=== PATIENT | female | born 1980 | race Caucasian/White ===

== ENCOUNTER 2020-03-09 14:58 | Emergency (ER) | payer BC, SELFPAY ==
[2020-03-09 15:04] VITALS: BP 142/71; PULSE 100; RESP 16; TEMP 37; O2SAT 98; BMI 36.3
[2020-03-09 15:16] VITALS: BP 142/71; PULSE 100; RESP 16; TEMP 37; O2SAT 98; BMI 36.1
--- NOTE | 2020-03-09 15:36 | HMH.EDUTC ---
[facility] [place] Disposition Clinical Impression: Left leg pain Gastrocnemius muscle strain Qualifiers: Encounter type: initial encounter Laterality: left Qualified Code(s): S86.112A - Strain of other muscle(s) and tendon(s) of posterior muscle group at lower leg level, left leg, initial encounter Disposition: Home, Self-Care Condition on Discharge: Good Instructions: How to Use Crutches, DI for Calf Muscle Strain Additional Instructions: Rest the extremity, apply ice for 15 minutes as tolerated three or four times per day, Wear the ra wrap for compression, Elevate the extremity as tolerated while you are resting. Use the crutches for ambulation to rest the leg . Take ibuprofen for pain. I sent in a prescription to your pharmacy. Follow up with Dr. Aragon (orthopedics). I put in a referral but you need to call her office and schedule an appointment. Follow up with your regular doctor. GO TO THE ER FOR ANY WORSENING SYMPTOMS Prescriptions: Ibuprofen [Ibuprofen 600mg Tablet] 600 mg PO Q6HP PRN #30 tab PRN Reason: Mild Pain Transmission Status: Received by [facility] Referrals: Tucker Lopez [Primary Care Provider] - Forms: Work/School Release Time of Disposition: 16:08 Medical Decision Making - Medical Records Medical records reviewed: No: I reviewed the patient's medical records. - Fernandez Inquiry Pt receiving controlled substance: No Vital Signs: 03/09/20 15:04 03/09/20 15:16 03/09/20 16:56 Temperature 98.6 F 98.6 F 98.6 F Temperature Source Oral Oral Pulse Rate 100 H Pulse Rate [Right Brachial] 100 H 100 H Respiratory Rate 16 16 16 Blood Pressure 142/71 H Blood Pressure [Right Arm] 142/71 H 142/71 H Blood Pressure Mean [Right Arm] 94 94 Blood Pressure Source [Right Arm] Automatic Cuff Blood Pressure Position [Right Arm] Sitting 02 Sat by Pulse Oximetry 98 98 Oxygen Delivery Method Room Air Room Air - Radiology Data #1 Image(s): Tib/Fib Image Reviewed: Yes I reviewed the patient's radiology image Preliminary Findings: Normal/NAD, No Fracture Seen PROCEDURE: XR TIBIA FIBULA LT 2V CLINICAL INDICATION: pain of left lower leg after feeling pop COMPARISON: No exams were available for comparison FINDINGS: No fracture or dislocation. No lytic or blastic change. There is normal mineralization. The joint spaces are well-preserved. No significant degenerative/arthritic changes. No erosive changes evident. Other findings:None. IMPRESSION: No acute findings. Dictated by: Pavan Laws MD 03/09/2020 17:19 Pavan Laws MD in [place] 03/09/2020 17:19 [facility] [place] HPI - General Stated complaint: [id number] calf of left leg pain Time Seen by Provider: 03/09/20 15:36 Mode of Arrival: Ambulatory Source of Information: Patient Limitations: No Limitations Description of Symptoms (Recalled from Triage Doc. by RN): pt c/o left posterior calf pain. pt states she felt it pop when she squat down while working HEENT Symptoms (Recalled from RN notes): No Resp Symptoms (Recalled from RN notes): No Skin Symptoms (Recalled from RN notes): No MS Symptoms (Recalled from RN notes): Yes Functional Status (Recalled from RN notes): WNL - History of Present Illness Provider Complaint: She states that while she was at work she was pushing up on a door and she felt a pop in the back of her right lower leg. Since then she has had pain and soreness of the back of her left lower leg. It hurts very bad to try to walk on it. - Related Data Home Medications Medication Instructions Recorded Confirmed Levocetirizine Dihydrochloride 5 mg PO DAILY 03/09/20 03/09/20 [Xyzal] Sertraline HCl [Zoloft 100mg 100 mg PO DAILY 03/09/20 03/09/20 tablet] Varenicline Tartrate [Chantix 1mg 1 mg PO DAILY 03/09/20 03/09/20 tablet] Previous Rx's Medication Instructions Recorded Ibuprofen [Ibuprofen 600mg 600 mg PO Q6HP PRN #30 tab 03/09/20 Tablet] Al
--- NOTE | 2020-03-09 15:42 | XR_ITS ---
PROCEDURE: XR TIBIA FIBULA LT 2V CLINICAL INDICATION: pain of left lower leg after feeling pop COMPARISON: No exams were available for comparison FINDINGS: No fracture or dislocation. No lytic or blastic change. There is normal mineralization. The joint spaces are well-preserved. No significant degenerative/arthritic changes. No erosive changes evident. Other findings:None. IMPRESSION: No acute findings. Dictated by: Pavan Laws MD 03/09/2020 17:19 Pavan Laws MD in [place] 03/09/2020 17:19
[2020-03-09 16:56] VITALS: BP 142/71; PULSE 100; RESP 16; TEMP 37; O2SAT 98
== END 2020-03-09 17:11 | disposition home or self-care (01) ==
PROVIDERS: Emergency Provider Nurse Practitioner Family; PCP Family Medicine
DX: S86.112A Strain of other muscle(s) and tendon(s) of posterior muscle group at lower leg level, left leg, initial encounter (principal); X50.0XXA Overexertion from strenuous movement or load, initial encounter; Y92.69 Other specified industrial and construction area as the place of occurrence of the external cause; Y99.0 Civilian activity done for income or pay
CPT/HCPCS: 73590; 99201